=== PATIENT | female | born 1985 | race Caucasian/White ===

== ENCOUNTER 2017-02-05 23:33 | Inpatient (IN) | payer OTHER ==
[~2017-02-05] VITALS: Ht 165.1 cm; Wt 76.4 kg
[2017-02-05] MEDS ORDERED: OXYTOCIN 30U/ 0.9% NaCL 500ML 500 ML IV ONE (23:41)
[2017-02-05] MEDS ORDERED: NEWBORN KIT ONE (23:49)
[2017-02-05] MEDS ORDERED: LIDOCAINE 1%, 20ML ONE (23:49)
[2017-02-05] MEDS ORDERED: OXYTOCIN 30U/ 0.9% NaCL 500ML 0 ML ONE (23:49)
[2017-02-05] MEDS ORDERED: MISOPROSTOL 200 MCG TABLET ONE (23:49)
[2017-02-05] MEDS ORDERED: OXYTOCIN 10 UNITS/ML, 1ML ONE (23:54)
[2017-02-06] VITALS (7 sets, daily range): BP systolic 108–131; BP diastolic 71–77
[2017-02-06] MEDS ORDERED: ONDANSETRON 2MG/ML, 2ML IVPush PRN
[2017-02-06] MEDS ORDERED: FENTANYL PF 100 MCG/2ML IVPush PRN
[2017-02-06] MEDS ORDERED: FENTANYL PF 100 MCG/2ML IV PRN
[2017-02-06] MEDS ORDERED: OXYTOCIN 10 UNITS/ML, 1ML IM PRN (00:30)
[2017-02-06] MEDS ORDERED: OXYTOCIN 30U/ 0.9% NaCL 500ML 500 ML IV SCH (01:02)
[2017-02-06] MEDS ORDERED: IBUPROFEN 600 MG TABLET ONE (01:04)
[2017-02-06] MEDS: IBUPROFEN 600 MG TABLET PO PRN ×4 (01:06→20:18)
[2017-02-06] MEDS ORDERED: BISACODYL 10 MG SUPP PR PRN (01:30)
[2017-02-06] MEDS ORDERED: MISOPROSTOL 200 MCG TABLET PR PRN (01:30)
[2017-02-06] MEDS ORDERED: MAGNESIUM HYDROXIDE 8%, 30ML UDC PO PRN (01:30)
[2017-02-06] MEDS ORDERED: HYDROcodone/APAP 10/325 MG TABLET PO PRN (01:30)
[2017-02-06] MEDS ORDERED: METHYLERGONOVINE 0.2 MG/ML IM PRN (01:30)
[2017-02-06] MEDS ORDERED: DIPH,PERTUSS(ACELL),TET VAC/PF NC IM-VACC PRN (01:30)
[2017-02-06] MEDS ORDERED: MEASLES,MUMPS&RUBELLA VACC/PF 0.5 ML SQ PRN (01:30)
[2017-02-06] MEDS ORDERED: HYDROcodone/APAP 5/325 TABLET PO PRN (01:30)
[2017-02-06] MEDS ORDERED: RHOGAM FROM BLOOD BANK 1 NOTE EA IM/IV ONE (01:30)
[2017-02-06] MEDS ORDERED: ONDANSETRON 2MG/ML, 2ML IV PRN (01:30)
[2017-02-06] MEDS ORDERED: METOCLOPRAMIDE 5 MG/ML, 2ML IV PRN (01:30)
[2017-02-06] MEDS ORDERED: CALCIUM CARBONATE 500 MG TAB.CHEW PO PRN ×2 (01:30)
[2017-02-06] MEDS ORDERED: ACETAMINOPHEN 325 MG TABLET PO PRN ×2 (01:30)
[2017-02-06] MEDS ORDERED: CARBOPROST TROMETHAMINE 250 MCG/ML, 1ML IM PRN (01:30)
[2017-02-06] MEDS ORDERED: GLYCERIN ADULT SUPP PR PRN (01:30)
[2017-02-06] MEDS ORDERED: PRENATAL VIT/IRON/FA 1 EACH TABLET ONE (07:54)
[2017-02-06] MEDS: DOCUSATE 100 MG CAPSULE PO PRN ×2 (07:56→20:18)
[2017-02-06] MEDS: PRENATAL VIT/IRON/FA 1 EACH TABLET PO SCH (07:56)
[2017-02-06] MEDS ORDERED: IBUP-1222 PO (15:01)
[2017-02-06] MEDS ORDERED: DOCU-30 PO (15:02)
[2017-02-06] MEDS ORDERED: HYDR-3240 PO (15:03)
[2017-02-07] MEDS: IBUPROFEN 600 MG TABLET PO PRN ×2 (04:20→10:45)
[2017-02-07 08:20] VITALS: BP 109/75
[2017-02-07] MEDS: PRENATAL VIT/IRON/FA 1 EACH TABLET PO SCH (08:21)
[2017-02-07] MEDS: DOCUSATE 100 MG CAPSULE PO PRN (08:21)
== END 2017-02-07 10:37 | disposition home or self-care (01) | DRG 775 ==
LOC: LDOP 23:33 → LDIP 23:44 → 2NW 02-06 02:12
PROVIDERS: ADMIT Student in an Organized Health Care Education/Training Program; ATTEND Student in an Organized Health Care Education/Training Program
PROC: 10E0XZZ Delivery of Products of Conception, External Approach (ICD-10-PCS; principal; 2017-02-06)
PROC: 0KQM0ZZ Repair Perineum Muscle, Open Approach (ICD-10-PCS; 2017-02-06)
DX: O62.3 Precipitate labor (principal); Z37.0 Single live birth; Z3A.38 38 weeks gestation of pregnancy; O70.1 Second degree perineal laceration during delivery; Z23 Encounter for immunization
CPT/HCPCS: 36415; 85025; 86850; 86900